=== PATIENT | female | born 1945 | race Caucasian/White ===

== ENCOUNTER 2020-07-02 09:57 | Outpatient (CLI) | payer MEDICARE, SELFPAY ==
--- NOTE | 2020-07-02 10:04 | XR_ITS ---
WS: [id number] CHEST 2 VIEWS HISTORY: pneumonia COMPARISON: None available. Lungs: There are a few scattered granulomata throughout both lungs. There is an additional soft tissu e calcification projecting over the lower LEFT lung. No pneumonia. Normal vasculature. Cardiac size: Normal. Mediastinum/Aorta: Normal mediastinum. Bones: Normal. Prior LEFT axillary kate dissection. XR/XR chest 2V* [id number] IMPRESSION: 1. No pneumonia. 2. Prior granulomatous disease.
== END 2020-07-02 09:58 | disposition home or self-care (01) ==
PROVIDERS: Visit Provider Internal Medicine Pulmonary Disease
DX: J18.9 Pneumonia, unspecified organism (principal)
CPT/HCPCS: 71046

== ENCOUNTER → 2020-08-18 12:22 | Outpatient (BNVA) | payer MEDICARE, SELFPAY | PROVIDERS: PCP Family Medicine; Visit Provider Family Medicine | DX: I10 Essential (primary) hypertension (principal); E78.5 Hyperlipidemia, unspecified; E89.0 Postprocedural hypothyroidism; R35.0 Frequency of micturition | CPT/HCPCS: 80053; 80061; 81000; 82043; 84443; 85025; 87086 ==

== ENCOUNTER → 2020-09-17 07:35 | Outpatient (BNVA) | payer MEDICARE, SELFPAY | PROVIDERS: PCP Family Medicine; Visit Provider Family Medicine | DX: I10 Essential (primary) hypertension (principal); E78.5 Hyperlipidemia, unspecified; E89.0 Postprocedural hypothyroidism | CPT/HCPCS: 80053; 80061; 82043; 84443; 85025 ==

== ENCOUNTER → 2020-09-29 12:43 | Outpatient (BNVA) | payer MEDICARE, SELFPAY | PROVIDERS: PCP Family Medicine; Visit Provider Family Medicine | DX: Z01.419 Encounter for gynecological examination (general) (routine) without abnormal findings (principal); J20.9 Acute bronchitis, unspecified | CPT/HCPCS: 88175 ==

== ENCOUNTER 2020-11-10 10:54 | Outpatient (CLI) | payer MEDICARE, SELFPAY ==
--- NOTE | 2020-11-10 11:00 | MM_ITS ---
WS: [id number] BILATERAL DIGITAL DIAGNOSTIC MAMMOGRAM MAMMOGRAPHY WITH CAD CLINICAL INFORMATION: HX OF BREAST CANCER COMPARISON: March 07, 2020 TECHNIQUE: Bilateral CC, MLO, and ML views. FINDINGS: The breasts are composed of heterogeneous fibroglandular density, which can limit the detection of sm all underlying mass lesions. Vascular calcification. Punctate and lucent centered calcifications. Dys trophic calcification left breast with prior lumpectomy. Surgical clips left axilla. No suspicious focal mass, asymmetry, calcifications, or architectural distortion. No evidence of michael gnancy. MM/[place] [id number] IMPRESSION: BI-RADS: 2-Benign FOLLOW UP: 1 Year Follow-up Recommend return to annual diagnostic mammography.
== END 2020-11-10 10:55 | disposition home or self-care (01) ==
LOC: RADSHAW 10:56
PROVIDERS: PCP Family Medicine; Visit Provider Family Medicine
DX: Z85.3 Personal history of malignant neoplasm of breast (principal)
CPT/HCPCS: 77066

== ENCOUNTER → 2020-12-30 11:39 | Outpatient (BNVA) | payer MEDICARE, SELFPAY | PROVIDERS: PCP Family Medicine; Visit Provider Family Medicine | DX: E89.0 Postprocedural hypothyroidism (principal); R25.1 Tremor, unspecified; B37.0 Candidal stomatitis | CPT/HCPCS: 82607; 82746; 84439; 84443 ==

== ENCOUNTER → 2021-04-02 14:03 | Outpatient (BNVA) | payer MEDICARE, SELFPAY | PROVIDERS: PCP Family Medicine; Visit Provider Family Medicine | DX: E89.0 Postprocedural hypothyroidism (principal); J30.9 Allergic rhinitis, unspecified | CPT/HCPCS: 84439; 84443 ==

== ENCOUNTER → 2021-04-28 11:03 | Outpatient (BNVA) | payer MEDICARE, SELFPAY | PROVIDERS: PCP Family Medicine; Visit Provider Specialist | DX: G25.0 Essential tremor (principal); J45.909 Unspecified asthma, uncomplicated; Z87.891 Personal history of nicotine dependence | CPT/HCPCS: 99204 ==

== ENCOUNTER → 2021-11-27 08:45 | Outpatient (BNVA) | payer MEDICARE, SELFPAY | PROVIDERS: PCP Family Medicine; Visit Provider Family Medicine | DX: I10 Essential (primary) hypertension (principal); E78.5 Hyperlipidemia, unspecified; E89.0 Postprocedural hypothyroidism; R25.1 Tremor, unspecified | CPT/HCPCS: 80053; 80061; 82043; 84443; 85025 ==

== ENCOUNTER 2021-12-10 10:07 | Outpatient (CLI) | payer MEDICARE, SELFPAY ==
--- NOTE | 2021-12-10 10:19 | MM_ITS ---
WS: [id number] BILATERAL 3D TOMOSYNTHESIS DIGITAL SCREENING MAMMOGRAPHY WITH CAD CLINICAL INFORMATION: HX OF BREAST CA HISTORY: Diagnostic mammogram. No current complaints. COMPARISON: November 10, 2020 TECHNIQUE: Bilateral CC and MLO views. FINDINGS: The breasts are composed of heterogeneous fibroglandular density tissue, which can limit the detectio n of small underlying mass lesions. Dystrophic calcifications LEFT breast with prior lumpectomy. Vasc ular calcification. Punctate and lucent centered calcifications. Surgical clips LEFT axilla. No suspi cious mass, asymmetry, calcifications, or architectural distortion. No evidence of malignancy. MM/[place] [id number] IMPRESSION: BI-RADS: 2-Benign FOLLOW UP: 1 Year Follow-up Recommend return to annual diagnostic mammography.
== END 2021-12-10 10:08 | disposition home or self-care (01) ==
PROVIDERS: PCP Family Medicine; Visit Provider Family Medicine
DX: Z85.3 Personal history of malignant neoplasm of breast (principal)
CPT/HCPCS: 77062

== ENCOUNTER → 2021-12-22 08:35 | Outpatient (BNVA) | payer MEDICARE, SELFPAY | PROVIDERS: PCP Family Medicine; Visit Provider Specialist | DX: G25.0 Essential tremor (principal); R05.8 Other specified cough; R26.89 Other abnormalities of gait and mobility | CPT/HCPCS: 99213 ==

== ENCOUNTER → 2021-12-24 13:35 | Outpatient (BNVA) | payer MEDICARE, SELFPAY | PROVIDERS: PCP Family Medicine; Visit Provider Family Medicine | DX: E87.1 Hypo-osmolality and hyponatremia (principal); J06.9 Acute upper respiratory infection, unspecified | CPT/HCPCS: 80048 ==

== ENCOUNTER → 2022-04-12 12:05 | Outpatient (BNVA) | payer MEDICARE, SELFPAY | PROVIDERS: PCP Family Medicine; Visit Provider Registered Nurse Neonatal Intensive Care | DX: N39.0 Urinary tract infection, site not specified (principal) | CPT/HCPCS: 81000 ==

== ENCOUNTER → 2022-05-17 10:48 | Outpatient (BNVA) | payer MEDICARE, SELFPAY | PROVIDERS: PCP Family Medicine; Visit Provider Family Medicine | DX: I10 Essential (primary) hypertension (principal); E89.0 Postprocedural hypothyroidism | CPT/HCPCS: 80053; 84443 ==

== ENCOUNTER → 2022-07-08 09:56 | Outpatient (BNVA) | payer MEDICARE, SELFPAY | PROVIDERS: PCP Family Medicine; Visit Provider Internal Medicine Pulmonary Disease | DX: R05.3 Chronic cough (principal); G47.33 Obstructive sleep apnea (adult) (pediatric); J45.51 Severe persistent asthma with (acute) exacerbation; R09.82 Postnasal drip; K21.9 Gastro-esophageal reflux disease without esophagitis; J30.9 Allergic rhinitis, unspecified; Z87.891 Personal history of nicotine dependence; R49.0 Dysphonia | CPT/HCPCS: 99214 ==

== ENCOUNTER → 2022-07-09 08:31 | Outpatient (BNVA) | payer MEDICARE, SELFPAY | PROVIDERS: PCP Family Medicine; Visit Provider Family Medicine | DX: E78.5 Hyperlipidemia, unspecified (principal); R05.3 Chronic cough | CPT/HCPCS: 80053; 84443 ==

== ENCOUNTER → 2022-08-06 08:30 | Outpatient (BNVA) | payer MEDICARE, SELFPAY | PROVIDERS: PCP Family Medicine; Visit Provider Family Medicine | DX: J30.9 Allergic rhinitis, unspecified (principal); R05.3 Chronic cough; E78.5 Hyperlipidemia, unspecified; R06.02 Shortness of breath | CPT/HCPCS: 80053; 82785; 84443; 85025; 85651; 86003; 86140 ==

== ENCOUNTER → 2022-11-05 09:47 | Outpatient (BNVA) | payer MEDICARE, SELFPAY | PROVIDERS: PCP Family Medicine; Visit Provider Internal Medicine Pulmonary Disease | DX: J45.51 Severe persistent asthma with (acute) exacerbation (principal); G47.33 Obstructive sleep apnea (adult) (pediatric); R09.82 Postnasal drip; K21.9 Gastro-esophageal reflux disease without esophagitis; J30.9 Allergic rhinitis, unspecified; J82.83 Eosinophilic asthma; Z87.891 Personal history of nicotine dependence; R49.0 Dysphonia | CPT/HCPCS: 99214 ==

== ENCOUNTER → 2022-12-22 08:12 | Outpatient (BNVA) | payer MEDICARE, SELFPAY | PROVIDERS: PCP Family Medicine; Visit Provider Specialist | DX: G25.0 Essential tremor (principal) | CPT/HCPCS: 99213 ==

== ENCOUNTER 2022-12-27 10:16 | Outpatient (CLI) | payer MEDICARE, SELFPAY ==
--- NOTE | 2022-12-27 10:21 | MM_ITS ---
WS: [id number] BILATERAL 3D TOMOSYNTHESIS DIGITAL DIAGNOSTIC MAMMOGRAPHY WITH CAD CLINICAL INFORMATION: history of breast cancer HISTORY: LEFT lumpectomy COMPARISON: 2021 TECHNIQUE: Bilateral CC, MLO, and ML views. FINDINGS: The breasts are composed of heterogeneous fibroglandular density, which can limit the detection of sm all underlying mass lesions. Dystrophic calcification LEFT breast with prior lumpectomy.Vascular calc ification. Punctate and lucent centered calcifications. Surgical clips LEFT axilla. No suspicious focal mass, asymmetry, calcifications, or architectural distortion. No evidence of michael gnancy. MM/[place] [id number] IMPRESSION: BI-RADS: 2-Benign FOLLOW UP: 1 Year Follow-up Recommend return to annual diagnostic mammography.
== END 2022-12-27 10:17 | disposition home or self-care (01) ==
PROVIDERS: PCP Family Medicine; Visit Provider Family Medicine
DX: Z85.3 Personal history of malignant neoplasm of breast (principal)
CPT/HCPCS: 77062; G0279

== ENCOUNTER → 2023-03-10 13:18 | Outpatient (BNVA) | payer MEDICARE, SELFPAY | PROVIDERS: PCP Family Medicine; Visit Provider Family Medicine | DX: E78.5 Hyperlipidemia, unspecified (principal); E89.0 Postprocedural hypothyroidism | CPT/HCPCS: 80053; 80061; 84443 ==

== ENCOUNTER → 2023-09-15 16:00 | Outpatient (BNVA) | payer MEDICARE, SELFPAY | PROVIDERS: PCP Family Medicine; Visit Provider Family Medicine | DX: E89.0 Postprocedural hypothyroidism (principal) | CPT/HCPCS: 84439; 84443 ==

== ENCOUNTER → 2023-12-27 10:48 | Outpatient (BNVA) | payer MEDICARE, SELFPAY | PROVIDERS: PCP Family Medicine; Visit Provider Specialist | DX: G25.0 Essential tremor; G31.84 Mild cognitive impairment of uncertain or unknown etiology | CPT/HCPCS: 96116; 99214 ==

== ENCOUNTER → 2024-01-18 15:19 | Outpatient (CLI) | payer MEDICARE, SELFPAY ==
--- NOTE | 2024-01-18 15:30 | MM_ITS ---
WS: [id number] BILATERAL 3D TOMOSYNTHESIS DIGITAL DIAGNOSTIC MAMMOGRAPHY WITH CAD CLINICAL INFORMATION: History of breast CA HISTORY: History of LEFT breast cancer with lumpectomy and radiation COMPARISON: 2022 TECHNIQUE: Bilateral CC, MLO, and ML views. FINDINGS: The breasts are composed of heterogeneous fibroglandular density, which can limit the detection of sm all underlying mass lesions. Dystrophic calcifications with parenchymal fibrosis and lumpectomy stephens es LEFT breast. Treatment-related changes LEFT breast. Vascular calcifications. Similar-appearing pun ctate and lucent centered calcifications. No new abnormalities in the LEFT breast. Surgical clips LEF T axilla. New masslike density upper outer RIGHT breast deep to the area of palpable concern. Ultrasound of thi s area is pending. ULTRASOUND BREAST RIGHT TECHNIQUE: Ultrasound right breast focused area of concern. CLINICAL INFORMATION: History of breast CA FINDINGS: Ultrasound RIGHT breast area of concern upper outer RIGHT breast. Large hypoechoic irregular lobulate d lesion deep to the palpable marker suspicious for neoplasm. This measures approximately 5.3 x 5.4 x 2.7 cm. This is located at the 9 o'clock position Ultrasound RIGHT axilla demonstrates enlarged lymph node measuring 1.0 x 1.9 x 0.9 cm with cortical t hickening but persistent fatty hilum. This is indeterminant and can also be sampled with ultrasound-g uided biopsy. MM/[place] [id number] IMPRESSION: BI-RADS: 5-Highly Suggestive of Malignancy FOLLOW UP: US Guided Biopsy Recommended Recommend ultrasound-guided biopsy of the RIGHT breast lesion and RIGHT axillar y lymph node Dr. Robison no longer available at [facility]. Patient reportedly will be seeing a new provider [facility]
--- NOTE | 2024-01-18 15:58 | US_ITS ---
WS: [id number] BILATERAL 3D TOMOSYNTHESIS DIGITAL DIAGNOSTIC MAMMOGRAPHY WITH CAD CLINICAL INFORMATION: History of breast CA HISTORY: History of LEFT breast cancer with lumpectomy and radiation COMPARISON: 2022 TECHNIQUE: Bilateral CC, MLO, and ML views. FINDINGS: The breasts are composed of heterogeneous fibroglandular density, which can limit the detection of sm all underlying mass lesions. Dystrophic calcifications with parenchymal fibrosis and lumpectomy stephens es LEFT breast. Treatment-related changes LEFT breast. Vascular calcifications. Similar-appearing pun ctate and lucent centered calcifications. No new abnormalities in the LEFT breast. Surgical clips LEF T axilla. New masslike density upper outer RIGHT breast deep to the area of palpable concern. Ultrasound of thi s area is pending. ULTRASOUND BREAST RIGHT TECHNIQUE: Ultrasound right breast focused area of concern. CLINICAL INFORMATION: History of breast CA FINDINGS: Ultrasound RIGHT breast area of concern upper outer RIGHT breast. Large hypoechoic irregular lobulate d lesion deep to the palpable marker suspicious for neoplasm. This measures approximately 5.3 x 5.4 x 2.7 cm. This is located at the 9 o'clock position Ultrasound RIGHT axilla demonstrates enlarged lymph node measuring 1.0 x 1.9 x 0.9 cm with cortical t hickening but persistent fatty hilum. This is indeterminant and can also be sampled with ultrasound-g uided biopsy. US/US breast RT limited* [id number] IMPRESSION: BI-RADS: 5-Highly Suggestive of Malignancy FOLLOW UP: US Guided Biopsy Recommended Recommend ultrasound-guided biopsy of the RIGHT breast lesion and RIGHT axillar y lymph node Dr. Robison no longer available at [facility]. Patient reportedly will be seeing a new provider [facility]
== END | disposition home or self-care (01) ==
LOC: RAD 15:19
PROVIDERS: PCP Family Medicine; Visit Provider Family Medicine
DX: Z85.3 Personal history of malignant neoplasm of breast (principal); R92.333 Mammographic heterogeneous density, bilateral breasts; R92.1 Mammographic calcification found on diagnostic imaging of breast; Z98.890 Other specified postprocedural states; R59.0 Localized enlarged lymph nodes; N63.10 Unspecified lump in the right breast, unspecified quadrant
CPT/HCPCS: 76642; 77062; G0279

== ENCOUNTER → 2024-01-25 16:47 | Outpatient (BNVA) | payer MEDICARE, SELFPAY | PROVIDERS: PCP Family Medicine; Visit Provider Nurse Practitioner | DX: R39.9 Unspecified symptoms and signs involving the genitourinary system (principal); B37.9 Candidiasis, unspecified | CPT/HCPCS: 81000 ==

== ENCOUNTER 2024-02-29 12:29 | Outpatient (CLI) | payer MEDICARE, SELFPAY | END 2024-02-29 12:30 | disposition home or self-care (01) | LOC: RAD 12:30 | PROVIDERS: PCP Family Medicine; Visit Provider Nurse Practitioner Family | DX: N63.11 Unspecified lump in the right breast, upper outer quadrant (principal); N63.31 Unspecified lump in axillary tail of the right breast; N63.10 Unspecified lump in the right breast, unspecified quadrant; N63.15 Unspecified lump in the right breast, overlapping quadrants | CPT/HCPCS: 19083; 38505; 76942; 88305; 88342 ==

== ENCOUNTER → 2025-05-14 11:00 | Outpatient (BNVA) | payer MEDICARE, SELFPAY | PROVIDERS: PCP Family Medicine; Visit Provider Family Medicine | DX: E78.5 Hyperlipidemia, unspecified (principal); I10 Essential (primary) hypertension; E89.0 Postprocedural hypothyroidism; E87.1 Hypo-osmolality and hyponatremia; K21.9 Gastro-esophageal reflux disease without esophagitis; Z85.3 Personal history of malignant neoplasm of breast; G25.0 Essential tremor; Z11.59 Encounter for screening for other viral diseases | CPT/HCPCS: 80053; 80061; 84439; 84443; 85025; 86803 ==